=== PATIENT | female | born 1950 | race Asian ===

== ENCOUNTER → 2017-09-01 | Outpatient (CLI) | payer MEDICARE, MEDICAID ==
[~2017-09-01] MED LIST: AMLO-512 PO; ATOR40TA28 PO; FERR-89 PO; FURO40 PO; LEVO50 PO; LOSA25TA21 PO; SODI650T PO
[2017-09-01 15:22] LABS: ALBUMIN 3.5 g/dL (3.4-5.0); BILIRUBIN,TOTAL 0.3 mg/dL (0.1-1.0); CALCIUM, TOTAL 10.9 mg/dL (8.8-10.5); CREATININE 3.33 mg/dL (0.60-1.30); POTASSIUM 4.3 mmol/L (3.5-5.1); TOTAL PROTEIN, SERUM 7.9 g/dL (6.4-8.2)
== END | disposition home or self-care (01) ==
LOC: LABPV 09:59
PROVIDERS: ATTEND Internal Medicine Nephrology
DX: N18.3 Chronic kidney disease, stage 3 (moderate) (principal); E83.52 Hypercalcemia

== ENCOUNTER 2017-09-24 07:56 | Day surgery (SDC) | payer MEDICARE, MEDICAID ==
[~2017-09-24] VITALS: Ht 149.9 cm; Wt 75.9 kg
[~2017-09-24 07:56] MED LIST changes: -AMLO-512 PO; -ATOR40TA28 PO; -FERR-89 PO; -FURO40 PO; -LEVO50 PO; -LOSA25TA21 PO; -SODI650T PO; +SODIUM CHLORIDE 0.9% 1,000 ML IV ONE
[2017-09-24] MEDS ORDERED: SODIUM CHLORIDE 0.9% 1,000 ML IV ONE (08:11)
[2017-09-24] MEDS ORDERED: FERR-89 PO (08:38)
[2017-09-24] MEDS ORDERED: FURO40 PO (08:38)
[2017-09-24] MEDS ORDERED: LEVO50 PO (08:38)
[2017-09-24] MEDS ORDERED: SODI650T PO (08:38)
[2017-09-24] MEDS ORDERED: AMLO-512 PO (08:38)
[2017-09-24] MEDS ORDERED: LOSA25TA21 PO (08:38)
[2017-09-24] MEDS ORDERED: ATOR40TA28 PO (08:38)
[2017-09-24] MEDS ORDERED: FentaNYL CITRATE-PF 100 MCG/2 ML VIAL ONE (09:03)
[2017-09-24] MEDS ORDERED: MIDAZOLAM HCL 2 MG/2 ML VIAL ONE (09:03)
[2017-09-24] MEDS ORDERED: GELATIN SPONGE,ABSORBABLE 12-7 MM TP ONE (09:14)
[2017-09-24] MEDS ORDERED: MIDAZOLAM HCL 2 MG/2 ML VIAL IVP ONE (09:55)
[2017-09-24] MEDS ORDERED: FentaNYL CITRATE-PF 100 MCG/2 ML VIAL IVP ONE (09:55)
[2017-09-24 10:23] LABS: GLUCOMETER DEV NAME(LOC) SDS 5; GLUCOSE,POINT OF CARE 246 MG/DL (70-110)
== END 2017-09-24 13:40 | disposition home or self-care (01) ==
LOC: SURGERY 07:56 → EDSTATUS 09:00 → SURGERY 13:40
PROVIDERS: ATTEND Internal Medicine Nephrology
DX: I12.9 Hypertensive chronic kidney disease with stage 1 through stage 4 chronic kidney disease, or unspecified chronic kidney disease (principal); N18.9 Chronic kidney disease, unspecified; E11.22 Type 2 diabetes mellitus with diabetic chronic kidney disease; E83.52 Hypercalcemia; E78.00 Pure hypercholesterolemia, unspecified; M19.90 Unspecified osteoarthritis, unspecified site; Z98.890 Other specified postprocedural states; Z79.4 Long term (current) use of insulin; Z79.899 Other long term (current) drug therapy
CPT/HCPCS: 50200; 82962; 88300; J2250; J3010; J7030; 77012

== ENCOUNTER → 2017-10-15 | Outpatient (CLI) | payer MEDICARE, MEDICAID ==
[~2017-10-15] MED LIST changes: +AMLO-512 PO; +ATOR40TA28 PO; +FERR-89 PO; +FURO40 PO; +LEVO50 PO; +LOSA25TA21 PO; +SODI650T PO; -SODIUM CHLORIDE 0.9% 1,000 ML IV ONE
[2017-10-15 12:15] LABS: HEMATOCRIT 26.7 % (36-46); HEMOGLOBIN 8.4 g/dL (12.0-16.0)
[2017-10-15 12:23] LABS: CALCIUM, TOTAL 9.3 mg/dL (8.8-10.5); CREATININE 3.01 mg/dL (0.60-1.30); POTASSIUM 5.5 mmol/L (3.5-5.1)
== END | disposition home or self-care (01) ==
LOC: LABPV 10:50
PROVIDERS: ATTEND Internal Medicine Nephrology
DX: N18.3 Chronic kidney disease, stage 3 (moderate) (principal); E83.52 Hypercalcemia
CPT/HCPCS: 85014; 85018

== ENCOUNTER 2018-07-19 13:28 | Inpatient (IN) | payer OTHER, MEDICAID ==
[~2018-07-19] VITALS: Ht 157.5 cm; Wt 78.5 kg
[~2018-07-19 13:28] MED LIST changes: +LOSA25TA16 PO; -LOSA25TA21 PO
[2018-07-19] MEDS ORDERED: NOREPINEPHRINE 4 MG/D5%-WATER 250 ML IV ONE (13:42)
[2018-07-19] MEDS ORDERED: DOPamine HCL 400 MG/D5%-WATER 250 ML IV ONE (13:57)
[2018-07-19] MEDS ORDERED: DOPamine HCL 400 MG/D5%-WATER 250 ML IV PRN (14:00)
[2018-07-19 14:19] LABS: HEMOGLOBIN 7.7 g/dL (12.0-16.0); MEAN CORPUSCULAR HEMOGLOBIN 27.2 pg (26.0-34.0); MEAN CORPUSCULAR HGB CONC 28.6 G/dL (31.0-37.0); MEAN CORPUSCULAR VOLUME 95 fL (80-100); PLATELET COUNT (AUTO) 268 K/uL (150-450); RED BLOOD CELL COUNT(AUTO) 2.85 MIL/uL (4.00-5.20); RED CELL DISTRIBUTION WIDTH 21.8 % (11.5-14.5)
[2018-07-19 14:20] LABS: INR 1.2 (0.9-1.1)
[2018-07-19 14:34] LABS: BAND NEUTROPHILS % (MANUAL) 7 % (0-5); EOSINOPHILS % (MANUAL) 1 % (1-6); LYMPHOCYTES % (MANUAL) 11 % (22-44); MONOCYTES % (MANUAL) 2 % (2-9); SEGMENTED NEUTROPHILS % 79 % (40-70)
[2018-07-19 14:40] LABS: BILIRUBIN,TOTAL 0.3 mg/dL (0.1-1.0); CALCIUM, TOTAL 12.1 mg/dL (8.8-10.5); CREATININE 4.4 mg/dL (0.60-1.30)
[2018-07-19 14:41] LABS: ALBUMIN 2.5 g/dL (3.4-5.0); TOTAL PROTEIN, SERUM 6.2 g/dL (6.4-8.2)
[2018-07-19] MEDS ORDERED: DEXTROSE 50%-WATER 25 GM/50 ML SYRINGE IVP ONE ×2 (14:49→15:30)
[2018-07-19] MEDS ORDERED: RINGERS SOLUTION,LACTATED 1,000 ML IV ONE (14:50)
[2018-07-19] MEDS ORDERED: INSULIN REGULAR, HUMAN 100 UNITS/ML ONE (14:53)
[2018-07-19] MEDS ORDERED: CARV3 PO (15:30)
[2018-07-19] MEDS ORDERED: INSULIN REGULAR, HUMAN 100 UNITS/ML IVP ONE (15:30)
[2018-07-19] MEDS ORDERED: ATOR40TA28 PO (15:30)
[2018-07-19 15:45] LABS: LACTIC ACID 8.5 mmol/L (0.4-2.0)
[2018-07-19 15:57] LABS: ABG A-A DIFF O2 559.5 mmHg (10-20.0); ABG BASE EXCESS -11.8 mmol/L (-2.0-3.0); ABG CARBOXYHEMOGLOBIN 2.9 % (0.0-1.5); ABG HCO3 15.3 mmol/L (22.0-26.0); ABG METHEMOGLOBIN 0.2 % (0.0-1.5); ABG OXYGEN CONTENT 11.2 mL/dL (15.0-23.0); ABG OXYGEN SATURATION 95.3 % (95.0-98.0); ABG OXYHEMOGLOBIN 92.3 % (94.0-100.0); ABG PCO2 55 mmHg (35-45); ABG TOTAL HEMOGLOBIN 8.5 G/dL (12.0-18.0); PO2, ARTERIAL BG 101.1 mmHg (79.0-87.0); SOURCE, BLOOD GAS ARTERIAL; TEMPERATURE, FAHRENHEIT, BG 96.7 FAHREN (96.0-98.6)
[2018-07-19 15:58] LABS: ABG PH 7.119 (7.35-7.450); O2 DEVICE,BLOOD GAS VENTILATOR (ROOM AIR); PEEP,BG 5 cm H2O; SITE, BLOOD GAS ARTERIAL LINE; VT, ABG 500 ml
[2018-07-19] MEDS ORDERED: HEPARIN SODIUM,PORCINE 1,000 UNITS/ML VIAL IVP ONE ×4 (16:30→19:15)
[2018-07-19 16:48] LABS: APPEARANCE,URINE CLOUDY (CLEAR); BILIRUBIN,URINE NEGATIVE (NEGATIVE); GLUCOSE, URINE (UA) NEGATIVE (NEGATIVE); KETONES,URINE TRACE mg/dL (NEGATIVE); LEUKOCYTE ESTERASE ,URINE LARGE (NEGATIVE); NITRATE,URINE POSITIVE (NEGATIVE); OCCULT BLOOD,URINE LARGE (NEGATIVE); PH,URINE 7.5 (5.0-8.0); PROTEIN,URINE SEE CONFIRM (NEGATIVE)
[2018-07-19 16:50] VITALS: BP 154/61
[2018-07-19] MEDS ORDERED: SODIUM BICARBONATE [ADULT] 8.4% 50 MEQ/50 ML SYRINGE IVP ONE ×2 (16:57→17:45)
[2018-07-19 17:01] LABS: RBC,URINE 51-100 /HPF (0-2); SULFOSALICYLIC ACID,URINE 4+ (Negative); WBC,URINE 51-100 /HPF (0-5)
[2018-07-19 17:03] LABS: BACTERIA,URINE Moderate /HPF (None Seen); SQUAMOUS EPITHELIAL CELL,UR Few /LPF (None Seen)
[2018-07-19] MEDS ORDERED: SODIUM CHLORIDE 0.9% 2,000 ML IV ONE (18:03)
[2018-07-19] MEDS: PANTOPRAZOLE SODIUM 40 MG/VIAL IVP SCH (18:07)
[2018-07-19 18:25] LABS: CREATININE 4.24 mg/dL (0.60-1.30); MAGNESIUM 2.5 mg/dL (1.80-2.40); PHOSPHORUS 7.9 mg/dL (2.5-4.9); POTASSIUM 5.4 mmol/L (3.5-5.1)
[2018-07-19 18:26] LABS: ABG A-A DIFF O2 602.2 mmHg (10-20.0); ABG BASE EXCESS -5.2 mmol/L (-2.0-3.0); ABG CARBOXYHEMOGLOBIN 2.3 % (0.0-1.5); ABG HCO3 20.4 mmol/L (22.0-26.0); ABG METHEMOGLOBIN 0.1 % (0.0-1.5); ABG OXYGEN CONTENT 10.3 mL/dL (15.0-23.0); ABG OXYHEMOGLOBIN 92.7 % (94.0-100.0); ABG PCO2 37 mmHg (35-45); ABG PH 7.355 (7.35-7.450); PO2, ARTERIAL BG 77.9 mmHg (79.0-87.0); SOURCE, BLOOD GAS ARTERIAL; TEMPERATURE, FAHRENHEIT, BG 95.4 FAHREN (96.0-98.6)
[2018-07-19 18:33] LABS: ABG TOTAL HEMOGLOBIN 7.8 G/dL (12.0-18.0); SITE, BLOOD GAS A LINE
[2018-07-19 18:34] LABS: O2 DEVICE,BLOOD GAS VENTILATOR (ROOM AIR)
[2018-07-19 18:35] LABS: PEEP,BG 5 cm H2O; VT, ABG 500 ml
[2018-07-19] MEDS ORDERED: MANNITOL 25%-12.5 GM/50 ML VIAL IVP PRN (19:15)
[2018-07-19 20:00] VITALS: BP 103/46
[2018-07-19] MEDS ORDERED: ONDANSETRON HCL 4 MG/2 ML VIAL IVP PRN (20:45)
[2018-07-19] MEDS ORDERED: ALBUTEROL SULFATE 2.5 MG/0.5 ML NEB SOLUTION NEB PRN (20:45)
[2018-07-19] MEDS ORDERED: IPRATROPIUM BROMIDE 0.5 MG/2.5 ML NEB SOLUTION NEB PRN (20:45)
[2018-07-19] MEDS ORDERED: MAGNESIUM HYDROXIDE SUSPENSION 30 ML UDCUP PO PRN (20:45)
[2018-07-19] MEDS ORDERED: BISACODYL 10 MG RECTAL RECTAL SUPPOSITORY PR PRN (20:45)
[2018-07-19 21:01] LABS: ABG A-A DIFF O2 610.6 mmHg (10-20.0); ABG BASE EXCESS -0.3 mmol/L (-2.0-3.0); ABG CARBOXYHEMOGLOBIN 2.3 % (0.0-1.5); ABG HCO3 24.3 mmol/L (22.0-26.0); ABG METHEMOGLOBIN 0.1 % (0.0-1.5); ABG OXYGEN CONTENT 10.9 mL/dL (15.0-23.0); ABG OXYHEMOGLOBIN 94.7 % (94.0-100.0); ABG PCO2 29 mmHg (35-45); PO2, ARTERIAL BG 82.6 mmHg (79.0-87.0); SOURCE, BLOOD GAS ARTERIAL; TEMPERATURE, FAHRENHEIT, BG 91.4 FAHREN (96.0-98.6)
[2018-07-19 21:04] LABS: O2 DEVICE,BLOOD GAS VENTILATOR (ROOM AIR); PEEP,BG 5 cm H2O; SITE, BLOOD GAS ARTERIAL LINE; VT, ABG 500 ml
[2018-07-19] MEDS: DOCUSATE SODIUM 100 MG CAPSULE NG SCH (21:42)
[2018-07-19] MEDS: PIPERACILLIN SODIUM/TAZOBACTAM 2.25 GM in DEXTROSE 5%-WATER 50 ML IV SCH (21:42)
[2018-07-19] MEDS ORDERED: SODIUM CHLORIDE 0.9% 250 ML IV ONE (21:48)
[2018-07-20] VITALS (14 sets, daily range): BP systolic 104–159; BP diastolic 40–58
[2018-07-20] MEDS: HEPARIN SODIUM,PORCINE 5,000 UNITS/ML VIAL SQ SCH ×3 (00:22→16:48)
[2018-07-20 01:05] LABS: ALBUMIN 2.3 g/dL (3.4-5.0); BILIRUBIN,TOTAL 0.6 mg/dL (0.1-1.0); CALCIUM, TOTAL 8.3 mg/dL (8.8-10.5); CREATININE 3.16 mg/dL (0.60-1.30); PHOSPHORUS 5.5 mg/dL (2.5-4.9); POTASSIUM 4.1 mmol/L (3.5-5.1); TOTAL PROTEIN, SERUM 5.5 g/dL (6.4-8.2)
[2018-07-20 01:28] LABS: GLUCOSE,POINT OF CARE 204 MG/DL (70-110)
[2018-07-20] MEDS: PIPERACILLIN SODIUM/TAZOBACTAM 2.25 GM in DEXTROSE 5%-WATER 50 ML IV SCH ×3 (02:28→18:00)
[2018-07-20 04:16] LABS: ABG A-A DIFF O2 472.5 mmHg (10-20.0); ABG BASE EXCESS -6.4 mmol/L (-2.0-3.0); ABG HCO3 19.6 mmol/L (22.0-26.0); ABG METHEMOGLOBIN 0.1 % (0.0-1.5); ABG OXYGEN CONTENT 9.4 mL/dL (15.0-23.0); ABG OXYGEN SATURATION 96.6 % (95.0-98.0); ABG OXYHEMOGLOBIN 93.6 % (94.0-100.0); ABG PCO2 26 mmHg (35-45); ABG PH 7.449 (7.35-7.450); PO2, ARTERIAL BG 78.2 mmHg (79.0-87.0); SOURCE, BLOOD GAS ARTERIAL
[2018-07-20 04:24] LABS: O2 DEVICE,BLOOD GAS VENTILATOR (ROOM AIR); SITE, BLOOD GAS ARTERIAL LINE
[2018-07-20 04:25] LABS: PEEP,BG 5 cm H2O; VT, ABG 500 ml
[2018-07-20 06:43] LABS: GLUCOSE,POINT OF CARE 260 MG/DL (70-110)
[2018-07-20 06:54] LABS: BASOPHILS % (AUTO) 0.1 % (0.0-2.0); EOSINOPHILS % (AUTO) 0 % (1.0-6.0); HEMATOCRIT 22.2 % (36-46); LYMPHOCYTES # (AUTO) 0.3 K/uL (1.0-4.8); LYMPHOCYTES % (AUTO) 1.1 % (22.0-44.0); MEAN CORPUSCULAR HGB CONC 30.5 G/dL (31.0-37.0); MEAN CORPUSCULAR VOLUME 88 fL (80-100); MONOCYTES # (AUTO) 1.1 K/uL (0.1-1.0); MONOCYTES % (AUTO) 4.1 % (2.0-9.0); NEUTROPHILS # (AUTO) 24.9 K/uL (1.8-7.7); PLATELET COUNT (AUTO) 205 K/uL (150-450); RED BLOOD CELL COUNT(AUTO) 2.51 MIL/uL (4.00-5.20); RED CELL DISTRIBUTION WIDTH 20.7 % (11.5-14.5)
[2018-07-20 07:07] LABS: HEMOGLOBIN 6.8 g/dL (12.0-16.0); NEUTROPHILS % (AUTO) 94.7 % (40.0-70.0)
[2018-07-20 07:16] LABS: % IRON SATURATION 5.6 % (22-44)
[2018-07-20 07:24] LABS: ALBUMIN 2.2 g/dL (3.4-5.0); BILIRUBIN,TOTAL 0.6 mg/dL (0.1-1.0); CALCIUM, TOTAL 8.1 mg/dL (8.8-10.5); CREATININE 3.43 mg/dL (0.60-1.30); MAGNESIUM 2.1 mg/dL (1.80-2.40); PHOSPHORUS 6.2 mg/dL (2.5-4.9); POTASSIUM 4.3 mmol/L (3.5-5.1); THYROID STIMULATING HORMONE 1.42 uIU/mL (0.36-3.74); TOTAL PROTEIN, SERUM 5.4 g/dL (6.4-8.2)
[2018-07-20] MEDS ORDERED: PANTOPRAZOLE SODIUM 40 MG/VIAL IVP SCH (09:00)
[2018-07-20 09:19] LABS: ABG A-A DIFF O2 327.4 mmHg (10-20.0); ABG BASE EXCESS -8.9 mmol/L (-2.0-3.0); ABG CARBOXYHEMOGLOBIN 2.7 % (0.0-1.5); ABG HCO3 17.8 mmol/L (22.0-26.0); ABG METHEMOGLOBIN 0.1 % (0.0-1.5); ABG OXYGEN CONTENT 10.5 mL/dL (15.0-23.0); ABG OXYGEN SATURATION 98.3 % (95.0-98.0); ABG OXYHEMOGLOBIN 95.5 % (94.0-100.0); ABG PCO2 29 mmHg (35-45); ABG PH 7.367 (7.35-7.450); PO2, ARTERIAL BG 140.3 mmHg (79.0-87.0); SOURCE, BLOOD GAS ARTERIAL; TEMPERATURE, FAHRENHEIT, BG 98.6 FAHREN (96.0-98.6)
[2018-07-20 09:21] LABS: ABG TOTAL HEMOGLOBIN 7.6 G/dL (12.0-18.0); O2 DEVICE,BLOOD GAS VENTILATOR (ROOM AIR); PEEP,BG 5 cm H2O; SITE, BLOOD GAS ARTERIAL LINE; VT, ABG 500 ml
[2018-07-20] MEDS: EPOETIN ALFA 10,000 UNITS/ML VIAL SQ SCH (09:22)
[2018-07-20] MEDS: DOCUSATE SODIUM 100 MG CAPSULE NG SCH ×2 (09:22→21:06)
[2018-07-20] MEDS: PANTOPRAZOLE SODIUM 40 MG/VIAL IVP SCH (09:22)
[2018-07-20] MEDS: SOD FERRIC GLUC COMPLX/SUCROSE 125 MG in SODIUM CHLORIDE 0.9% 100 ML IV SCH (09:23)
[2018-07-20] MEDS ORDERED: SODIUM CHLORIDE 0.9% 500 ML IV ONE (10:20)
[2018-07-20] MEDS ORDERED: SODIUM CHLORIDE 0.9% 250 ML IV ONE ×2 (11:28→13:57)
[2018-07-20] MEDS ORDERED: SODIUM CHLORIDE 0.9% 2,000 ML IV ONE (11:28)
[2018-07-20 12:51] LABS: ALBUMIN 2.2 g/dL (3.4-5.0); BILIRUBIN,TOTAL 0.6 mg/dL (0.1-1.0); CALCIUM, TOTAL 8.1 mg/dL (8.8-10.5); CREATININE 3.5 mg/dL (0.60-1.30); MAGNESIUM 2.2 mg/dL (1.80-2.40); PHOSPHORUS 6.7 mg/dL (2.5-4.9); POTASSIUM 4.4 mmol/L (3.5-5.1); TOTAL PROTEIN, SERUM 5.4 g/dL (6.4-8.2)
[2018-07-20] MEDS: PROPOFOL 1000 MG/ISO-OSM 100 ML IV PRN ×2 (15:11→22:39)
[2018-07-20 15:51] LABS: ABG A-A DIFF O2 257.8 mmHg (10-20.0); ABG BASE EXCESS -7.5 mmol/L (-2.0-3.0); ABG CARBOXYHEMOGLOBIN 1.7 % (0.0-1.5); ABG HCO3 19.3 mmol/L (22.0-26.0); ABG METHEMOGLOBIN 0.2 % (0.0-1.5); ABG OXYGEN SATURATION 98.3 % (95.0-98.0); ABG OXYHEMOGLOBIN 96.4 % (94.0-100.0); ABG PCO2 28 mmHg (35-45); ABG PH 7.412 (7.35-7.450); ABG TOTAL HEMOGLOBIN 10.9 G/dL (12.0-18.0); PO2, ARTERIAL BG 139.8 mmHg (79.0-87.0); SITE, BLOOD GAS ARTERIAL LINE; SOURCE, BLOOD GAS ARTERIAL; TEMPERATURE, FAHRENHEIT, BG 98.6 FAHREN (96.0-98.6)
[2018-07-20 15:52] LABS: O2 DEVICE,BLOOD GAS VENTILATOR (ROOM AIR); PEEP,BG 5 cm H2O; SPONTANEOUS VT, BG 448 ml; VENT MODE, BG Press. Control Vent (ROOM AIR)
[2018-07-20] MEDS ORDERED: HEPARIN SODIUM,PORCINE 1,000 UNITS/ML VIAL IVP PRN (16:15)
[2018-07-20] MEDS ORDERED: DEXTROSE 50%-WATER 25 GM/50 ML SYRINGE IVP PRN (16:15)
[2018-07-20] MEDS ORDERED: HEPARIN SODIUM,PORCINE 1,000 UNITS/ML VIAL IVP ONE (16:47)
[2018-07-20] MEDS ORDERED: SODIUM BICARBONATE [ADULT] 8.4% 50 MEQ/50 ML SYRINGE IVP ONE (16:48)
[2018-07-20] MEDS ORDERED: ATROPINE SULFATE 0.1 MG/ML 10 ML SYRINGE IVP ONE (16:48)
[2018-07-20] MEDS ORDERED: EPINEPHrine 1:10,000 [1 MG/10 ML] SYRINGE IVP ONE (16:48)
[2018-07-20] MEDS ORDERED: CALCIUM CHLORIDE 100 MG/ML 10 ML SYRINGE IVP ONE (16:48)
[2018-07-20] MEDS: HEPARIN SODIUM,PORCINE 1,000 UNITS/ML VIAL IVP PRN ×2 (16:50→16:52)
[2018-07-20] MEDS: MORPHINE SULFATE 4 MG/ML SYRINGE IVP PRN (18:00)
[2018-07-20] MEDS: INSULIN LISPRO 100 UNITS/ML SQ PRN (18:31)
[2018-07-20 18:39] LABS: ALBUMIN 2.4 g/dL (3.4-5.0); BILIRUBIN,TOTAL 0.8 mg/dL (0.1-1.0); CALCIUM, TOTAL 8.7 mg/dL (8.8-10.5); CREATININE 2.31 mg/dL (0.60-1.30); MAGNESIUM 1.7 mg/dL (1.80-2.40); PHOSPHORUS 4.9 mg/dL (2.5-4.9); POTASSIUM 4.3 mmol/L (3.5-5.1)
[2018-07-20] MEDS: INSULIN GLARGINE,HUM.REC.ANLOG 100 UNITS/ML SQ SCH (21:07)
[2018-07-20 21:31] LABS: ABG A-A DIFF O2 306.3 mmHg (10-20.0); ABG BASE EXCESS -4.6 mmol/L (-2.0-3.0); ABG CARBOXYHEMOGLOBIN 2.4 % (0.0-1.5); ABG HCO3 21.1 mmol/L (22.0-26.0); ABG METHEMOGLOBIN 0.2 % (0.0-1.5); ABG OXYGEN CONTENT 11.6 mL/dL (15.0-23.0); ABG OXYGEN SATURATION 96.5 % (95.0-98.0); ABG PCO2 31 mmHg (35-45); ABG PH 7.426 (7.35-7.450); ABG TOTAL HEMOGLOBIN 8.7 G/dL (12.0-18.0); PO2, ARTERIAL BG 87.7 mmHg (79.0-87.0); SOURCE, BLOOD GAS ARTERIAL; TEMPERATURE, FAHRENHEIT, BG 98.6 FAHREN (96.0-98.6)
[2018-07-20 21:37] LABS: O2 DEVICE,BLOOD GAS VENTILATOR (ROOM AIR); SITE, BLOOD GAS ARTERIAL LINE; VENT MODE, BG Press. Control Vent (ROOM AIR)
[2018-07-20 21:38] LABS: PEEP,BG 5 cm H2O
[2018-07-21] VITALS: BP 114/44
[2018-07-21] MEDS: HEPARIN SODIUM,PORCINE 5,000 UNITS/ML VIAL SQ SCH ×3 (00:05→16:14)
[2018-07-21] MEDS: INSULIN LISPRO 100 UNITS/ML SQ PRN ×4 (00:09→21:24)
[2018-07-21 01:11] LABS: ALBUMIN 2.3 g/dL (3.4-5.0); BILIRUBIN,TOTAL 0.7 mg/dL (0.1-1.0); CALCIUM, TOTAL 8.5 mg/dL (8.8-10.5); CREATININE 2.76 mg/dL (0.60-1.30); MAGNESIUM 1.7 mg/dL (1.80-2.40); PHOSPHORUS 5.5 mg/dL (2.5-4.9); POTASSIUM 4.1 mmol/L (3.5-5.1); TOTAL PROTEIN, SERUM 5.7 g/dL (6.4-8.2)
[2018-07-21] MEDS: PIPERACILLIN SODIUM/TAZOBACTAM 2.25 GM in DEXTROSE 5%-WATER 50 ML IV SCH ×3 (03:48→18:35)
[2018-07-21 03:52] LABS: ABG BASE EXCESS -4.5 mmol/L (-2.0-3.0); ABG CARBOXYHEMOGLOBIN 1.5 % (0.0-1.5); ABG HCO3 21.4 mmol/L (22.0-26.0); ABG METHEMOGLOBIN 0.2 % (0.0-1.5); ABG OXYGEN CONTENT 12.1 mL/dL (15.0-23.0); ABG OXYGEN SATURATION 97.9 % (95.0-98.0); ABG OXYHEMOGLOBIN 96.2 % (94.0-100.0); ABG PCO2 27 mmHg (35-45); ABG PH 7.468 (7.35-7.450); ABG TOTAL HEMOGLOBIN 8.8 G/dL (12.0-18.0); PO2, ARTERIAL BG 117.8 mmHg (79.0-87.0); SOURCE, BLOOD GAS ARTERIAL; TEMPERATURE, FAHRENHEIT, BG 97.5 FAHREN (96.0-98.6)
[2018-07-21 04:00] VITALS: BP 133/36
[2018-07-21 04:01] LABS: O2 DEVICE,BLOOD GAS VENTILATOR (ROOM AIR); PEEP,BG 5 cm H2O; SITE, BLOOD GAS ARTERIAL LINE; VENT MODE, BG Press. Control Vent (ROOM AIR)
[2018-07-21 04:55] LABS: BASOPHILS % (AUTO) 0.1 % (0.0-2.0); EOSINOPHILS % (AUTO) 0.1 % (1.0-6.0); HEMATOCRIT 26.3 % (36-46); HEMOGLOBIN 8.8 g/dL (12.0-16.0); LYMPHOCYTES # (AUTO) 0.4 K/uL (1.0-4.8); LYMPHOCYTES % (AUTO) 1.7 % (22.0-44.0); MEAN CORPUSCULAR HEMOGLOBIN 28.8 pg (26.0-34.0); MEAN CORPUSCULAR HGB CONC 33.3 G/dL (31.0-37.0); MEAN CORPUSCULAR VOLUME 87 fL (80-100); MONOCYTES # (AUTO) 0.8 K/uL (0.1-1.0); MONOCYTES % (AUTO) 3.3 % (2.0-9.0); NEUTROPHILS # (AUTO) 23.9 K/uL (1.8-7.7); PLATELET COUNT (AUTO) 207 K/uL (150-450); RED BLOOD CELL COUNT(AUTO) 3.05 MIL/uL (4.00-5.20); RED CELL DISTRIBUTION WIDTH 19.2 % (11.5-14.5)
[2018-07-21 04:59] LABS: NEUTROPHILS % (AUTO) 94.8 % (40.0-70.0)
[2018-07-21] MEDS ORDERED: SODIUM CHLORIDE 0.9% 250 ML IV ONE ×2 (05:02→21:01)
[2018-07-21 05:15] LABS: ALBUMIN 2.3 g/dL (3.4-5.0); BILIRUBIN,TOTAL 0.6 mg/dL (0.1-1.0); CALCIUM, TOTAL 8.3 mg/dL (8.8-10.5); CREATININE 2.99 mg/dL (0.60-1.30); MAGNESIUM 1.7 mg/dL (1.80-2.40); PHOSPHORUS 5.8 mg/dL (2.5-4.9); POTASSIUM 4.2 mmol/L (3.5-5.1); TOTAL PROTEIN, SERUM 5.9 g/dL (6.4-8.2)
[2018-07-21 07:08] LABS: GLUCOSE,POINT OF CARE 182 MG/DL (70-110)
[2018-07-21 07:08] LABS: GLUCOSE,POINT OF CARE 173 MG/DL (70-110)
[2018-07-21 07:08] LABS: GLUCOSE,POINT OF CARE 171 MG/DL (70-110)
[2018-07-21 07:08] LABS: GLUCOSE,POINT OF CARE 188 MG/DL (70-110)
[2018-07-21 08:00] VITALS: BP 119/39
[2018-07-21] MEDS: PANTOPRAZOLE SODIUM 40 MG/VIAL IVP SCH (08:54)
[2018-07-21] MEDS: SOD FERRIC GLUC COMPLX/SUCROSE 125 MG in SODIUM CHLORIDE 0.9% 100 ML IV SCH (08:54)
[2018-07-21] MEDS: DOCUSATE SODIUM 100 MG CAPSULE NG SCH ×2 (08:54→21:22)
[2018-07-21] MEDS: PROPOFOL 1000 MG/ISO-OSM 100 ML IV PRN (08:59)
[2018-07-21 09:25] LABS: ABG A-A DIFF O2 253.9 mmHg (10-20.0); ABG BASE EXCESS -1.1 mmol/L (-2.0-3.0); ABG CARBOXYHEMOGLOBIN 1.9 % (0.0-1.5); ABG HCO3 24.1 mmol/L (22.0-26.0); ABG METHEMOGLOBIN 0.2 % (0.0-1.5); ABG OXYGEN CONTENT 14.3 mL/dL (15.0-23.0); ABG OXYGEN SATURATION 97.2 % (95.0-98.0); ABG OXYHEMOGLOBIN 95.2 % (94.0-100.0); ABG PCO2 31 mmHg (35-45); ABG PH 7.477 (7.35-7.450); ABG TOTAL HEMOGLOBIN 10.6 G/dL (12.0-18.0); PO2, ARTERIAL BG 102.8 mmHg (79.0-87.0); SOURCE, BLOOD GAS ARTERIAL; TEMPERATURE, FAHRENHEIT, BG 99.8 FAHREN (96.0-98.6)
[2018-07-21 09:31] LABS: O2 DEVICE,BLOOD GAS VENTILATOR (ROOM AIR); SITE, BLOOD GAS ARTERIAL LINE; VENT MODE, BG Press. Control Vent (ROOM AIR); VT, ABG 350 ml
[2018-07-21 09:32] LABS: PEEP,BG 5 cm H2O
[2018-07-21 09:33] LABS: INSPIRATORY TIME, BG 0.8 SEC
[2018-07-21 12:00] VITALS: BP 125/44
[2018-07-21 12:37] LABS: ALBUMIN 2.2 g/dL (3.4-5.0); BILIRUBIN,TOTAL 0.6 mg/dL (0.1-1.0); CALCIUM, TOTAL 8.3 mg/dL (8.8-10.5); CREATININE 3.43 mg/dL (0.60-1.30); MAGNESIUM 1.8 mg/dL (1.80-2.40); PHOSPHORUS 5.9 mg/dL (2.5-4.9); POTASSIUM 4.5 mmol/L (3.5-5.1); TOTAL PROTEIN, SERUM 5.8 g/dL (6.4-8.2)
[2018-07-21 16:00] VITALS: BP 138/59
[2018-07-21 18:08] LABS: GLUCOSE,POINT OF CARE 167 MG/DL (70-110)
[2018-07-21 18:24] LABS: ALBUMIN 2.2 g/dL (3.4-5.0); BILIRUBIN,TOTAL 0.6 mg/dL (0.1-1.0); CALCIUM, TOTAL 8.2 mg/dL (8.8-10.5); CREATININE 3.78 mg/dL (0.60-1.30); MAGNESIUM 1.9 mg/dL (1.80-2.40); PHOSPHORUS 6.1 mg/dL (2.5-4.9); POTASSIUM 4.7 mmol/L (3.5-5.1); TOTAL PROTEIN, SERUM 5.8 g/dL (6.4-8.2)
[2018-07-21 20:00] VITALS: BP 122/47
[2018-07-21] MEDS ORDERED: SODIUM CHLORIDE 0.9% 500 ML IV ONE (21:01)
[2018-07-21] MEDS: INSULIN GLARGINE,HUM.REC.ANLOG 100 UNITS/ML SQ SCH (21:23)
[2018-07-22] VITALS: BP 111/43
[2018-07-22] MEDS: HEPARIN SODIUM,PORCINE 5,000 UNITS/ML VIAL SQ SCH ×3 (00:03→16:00)
[2018-07-22] MEDS: INSULIN LISPRO 100 UNITS/ML SQ PRN ×3 (00:04→13:10)
[2018-07-22] MEDS: PIPERACILLIN SODIUM/TAZOBACTAM 2.25 GM in DEXTROSE 5%-WATER 50 ML IV SCH ×3 (03:09→17:22)
[2018-07-22 04:00] VITALS: BP 112/44
[2018-07-22 04:58] LABS: EOSINOPHILS % (AUTO) 0.3 % (1.0-6.0); HEMATOCRIT 23.3 % (36-46); HEMOGLOBIN 7.7 g/dL (12.0-16.0); LYMPHOCYTES # (AUTO) 0.7 K/uL (1.0-4.8); LYMPHOCYTES % (AUTO) 3.8 % (22.0-44.0); MEAN CORPUSCULAR HEMOGLOBIN 28.8 pg (26.0-34.0); MEAN CORPUSCULAR HGB CONC 32.9 G/dL (31.0-37.0); MEAN CORPUSCULAR VOLUME 88 fL (80-100); MONOCYTES # (AUTO) 0.8 K/uL (0.1-1.0); NEUTROPHILS # (AUTO) 17.6 K/uL (1.8-7.7); PLATELET COUNT (AUTO) 173 K/uL (150-450); RED BLOOD CELL COUNT(AUTO) 2.66 MIL/uL (4.00-5.20); RED CELL DISTRIBUTION WIDTH 19.9 % (11.5-14.5)
[2018-07-22 05:00] LABS: NEUTROPHILS % (AUTO) 91.9 % (40.0-70.0)
[2018-07-22 05:08] LABS: CREATININE 4.37 mg/dL (0.60-1.30); PHOSPHORUS 6.8 mg/dL (2.5-4.9); POTASSIUM 4.3 mmol/L (3.5-5.1)
[2018-07-22] MEDS: PROPOFOL 1000 MG/ISO-OSM 100 ML IV PRN ×2 (05:21→22:58)
[2018-07-22] MEDS: DOCUSATE SODIUM 100 MG CAPSULE NG SCH ×2 (08:16→21:56)
[2018-07-22] MEDS: SOD FERRIC GLUC COMPLX/SUCROSE 125 MG in SODIUM CHLORIDE 0.9% 100 ML IV SCH (08:23)
[2018-07-22] MEDS: EPOETIN ALFA 10,000 UNITS/ML VIAL SQ SCH (08:24)
[2018-07-22] MEDS: PANTOPRAZOLE SODIUM 40 MG/VIAL IVP SCH (08:24)
[2018-07-22 09:38] VITALS: BP 126/48
[2018-07-22] MEDS ORDERED: NOREPINEPHRINE BITARTRATE 16 MG in DEXTROSE 5%-WATER 234 ML IV PRN (10:24)
[2018-07-22 12:00] VITALS: BP 134/51
[2018-07-22 16:00] VITALS: BP 150/55
[2018-07-22] MEDS ORDERED: SODIUM CHLORIDE 0.9% 250 ML IV ONE (17:07)
[2018-07-22 17:08] LABS: GLUCOSE,POINT OF CARE 184 MG/DL (70-110)
[2018-07-22 17:08] LABS: GLUCOSE,POINT OF CARE 165 MG/DL (70-110)
[2018-07-22 17:08] LABS: GLUCOSE,POINT OF CARE 186 MG/DL (70-110)
[2018-07-22 17:08] LABS: GLUCOSE,POINT OF CARE 147 MG/DL (70-110)
[2018-07-22] MEDS ORDERED: HEPARIN SODIUM,PORCINE 1,000 UNITS/ML VIAL IVP ONE (18:39)
[2018-07-22 19:42] LABS: GLUCOSE,POINT OF CARE 97 MG/DL (70-110)
[2018-07-22 20:00] VITALS: BP 119/51
[2018-07-22] MEDS: INSULIN GLARGINE,HUM.REC.ANLOG 100 UNITS/ML SQ SCH (21:57)
[2018-07-23] VITALS (7 sets, daily range): BP systolic 123–167; BP diastolic 49–89
[2018-07-23] MEDS: HEPARIN SODIUM,PORCINE 5,000 UNITS/ML VIAL SQ SCH ×4 (00:08→23:57)
[2018-07-23] MEDS ORDERED: SODIUM CHLORIDE 0.9% 250 ML IV ONE (03:18)
[2018-07-23] MEDS: PIPERACILLIN SODIUM/TAZOBACTAM 2.25 GM in DEXTROSE 5%-WATER 50 ML IV SCH ×3 (03:19→18:19)
[2018-07-23 05:18] LABS: GLUCOSE,POINT OF CARE 108 MG/DL (70-110)
[2018-07-23 05:18] LABS: GLUCOSE,POINT OF CARE 112 MG/DL (70-110)
[2018-07-23] MEDS: PROPOFOL 1000 MG/ISO-OSM 100 ML IV PRN (05:29)
[2018-07-23 05:35] LABS: BASOPHILS % (AUTO) 0.1 % (0.0-2.0); EOSINOPHILS % (AUTO) 0.7 % (1.0-6.0); HEMATOCRIT 27.3 % (36-46); HEMOGLOBIN 8.9 g/dL (12.0-16.0); LYMPHOCYTES # (AUTO) 0.6 K/uL (1.0-4.8); LYMPHOCYTES % (AUTO) 3.3 % (22.0-44.0); MEAN CORPUSCULAR HEMOGLOBIN 28.8 pg (26.0-34.0); MEAN CORPUSCULAR HGB CONC 32.7 G/dL (31.0-37.0); MEAN CORPUSCULAR VOLUME 88 fL (80-100); MONOCYTES # (AUTO) 0.9 K/uL (0.1-1.0); MONOCYTES % (AUTO) 4.7 % (2.0-9.0); NEUTROPHILS # (AUTO) 16.6 K/uL (1.8-7.7); PLATELET COUNT (AUTO) 162 K/uL (150-450); RED BLOOD CELL COUNT(AUTO) 3.11 MIL/uL (4.00-5.20); RED CELL DISTRIBUTION WIDTH 20.2 % (11.5-14.5)
[2018-07-23 05:37] LABS: NEUTROPHILS % (AUTO) 91.2 % (40.0-70.0)
[2018-07-23 05:51] LABS: CALCIUM, TOTAL 8.5 mg/dL (8.8-10.5); CREATININE 2.85 mg/dL (0.60-1.30); MAGNESIUM 1.7 mg/dL (1.80-2.40); PHOSPHORUS 5.8 mg/dL (2.5-4.9); POTASSIUM 4.2 mmol/L (3.5-5.1)
[2018-07-23 06:53] LABS: GLUCOSE,POINT OF CARE 109 MG/DL (70-110)
[2018-07-23 08:36] LABS: ABG A-A DIFF O2 154.3 mmHg (10-20.0); ABG CARBOXYHEMOGLOBIN 2.2 % (0.0-1.5); ABG HCO3 23.8 mmol/L (22.0-26.0); ABG METHEMOGLOBIN 0.3 % (0.0-1.5); ABG OXYGEN SATURATION 98.5 % (95.0-98.0); ABG PCO2 38 mmHg (35-45); ABG PH 7.414 (7.35-7.450); ABG TOTAL HEMOGLOBIN 9.4 G/dL (12.0-18.0); O2 DEVICE,BLOOD GAS VENTILATOR (ROOM AIR); SITE, BLOOD GAS ARTERIAL LINE; SOURCE, BLOOD GAS ARTERIAL; TEMPERATURE, FAHRENHEIT, BG 96.5 FAHREN (96.0-98.6)
[2018-07-23 08:37] LABS: PEEP,BG 5 cm H2O; VENT MODE, BG Press. Control Vent (ROOM AIR)
[2018-07-23] MEDS: PANTOPRAZOLE SODIUM 40 MG/VIAL IVP SCH (09:29)
[2018-07-23] MEDS: DOCUSATE SODIUM 100 MG CAPSULE NG SCH ×2 (09:29→20:31)
[2018-07-23] MEDS: SOD FERRIC GLUC COMPLX/SUCROSE 125 MG in SODIUM CHLORIDE 0.9% 100 ML IV SCH (09:30)
[2018-07-23] MEDS: METOPROLOL TARTRATE 25 MG TABLET PO SCH ×2 (09:30→20:31)
[2018-07-23 16:48] LABS: GLUCOSE,POINT OF CARE 129 MG/DL (70-110)
[2018-07-23] MEDS: INSULIN GLARGINE,HUM.REC.ANLOG 100 UNITS/ML SQ SCH (20:32)
[2018-07-23] MEDS: INSULIN LISPRO 100 UNITS/ML SQ PRN (20:33)
[2018-07-23 20:43] LABS: GLUCOSE,POINT OF CARE 150 MG/DL (70-110)
[2018-07-23 20:43] LABS: GLUCOSE,POINT OF CARE 136 MG/DL (70-110)
[2018-07-24] VITALS: BP 139/62
[2018-07-24] MEDS: INSULIN LISPRO 100 UNITS/ML SQ PRN ×4 (00:01→23:17)
[2018-07-24] MEDS: PIPERACILLIN SODIUM/TAZOBACTAM 2.25 GM in DEXTROSE 5%-WATER 50 ML IV SCH ×3 (02:32→17:55)
[2018-07-24] MEDS ORDERED: SODIUM CHLORIDE 0.9% 250 ML IV ONE (02:34)
[2018-07-24 04:00] VITALS: BP 145/63
[2018-07-24 05:08] LABS: BASOPHILS % (AUTO) 0.1 % (0.0-2.0); EOSINOPHILS % (AUTO) 0.2 % (1.0-6.0); HEMATOCRIT 28.9 % (36-46); HEMOGLOBIN 9.3 g/dL (12.0-16.0); LYMPHOCYTES # (AUTO) 0.3 K/uL (1.0-4.8); LYMPHOCYTES % (AUTO) 1.6 % (22.0-44.0); MEAN CORPUSCULAR HEMOGLOBIN 28.2 pg (26.0-34.0); MEAN CORPUSCULAR HGB CONC 32.4 G/dL (31.0-37.0); MEAN CORPUSCULAR VOLUME 87 fL (80-100); MONOCYTES # (AUTO) 0.9 K/uL (0.1-1.0); MONOCYTES % (AUTO) 4.7 % (2.0-9.0); NEUTROPHILS # (AUTO) 17.8 K/uL (1.8-7.7); PLATELET COUNT (AUTO) 175 K/uL (150-450); RED BLOOD CELL COUNT(AUTO) 3.31 MIL/uL (4.00-5.20); RED CELL DISTRIBUTION WIDTH 20.2 % (11.5-14.5)
[2018-07-24 05:11] LABS: CALCIUM, TOTAL 8.3 mg/dL (8.8-10.5); CREATININE 4.27 mg/dL (0.60-1.30); MAGNESIUM 2.1 mg/dL (1.80-2.40); NEUTROPHILS % (AUTO) 93.4 % (40.0-70.0); PHOSPHORUS 7.9 mg/dL (2.5-4.9); POTASSIUM 4.3 mmol/L (3.5-5.1)
[2018-07-24 06:03] LABS: GLUCOSE,POINT OF CARE 128 MG/DL (70-110)
[2018-07-24 06:03] LABS: GLUCOSE,POINT OF CARE 128 MG/DL (70-110)
[2018-07-24 08:00] VITALS: BP 142/56
[2018-07-24] MEDS: HEPARIN SODIUM,PORCINE 5,000 UNITS/ML VIAL SQ SCH ×3 (08:00→23:12)
[2018-07-24] MEDS: DOCUSATE SODIUM 100 MG CAPSULE NG SCH ×2 (08:27→09:00)
[2018-07-24] MEDS: PANTOPRAZOLE SODIUM 40 MG/VIAL IVP SCH (08:27)
[2018-07-24] MEDS: METOPROLOL TARTRATE 25 MG TABLET PO SCH ×2 (09:00→20:12)
[2018-07-24] MEDS: SOD FERRIC GLUC COMPLX/SUCROSE 125 MG in SODIUM CHLORIDE 0.9% 100 ML IV SCH (09:00)
[2018-07-24 11:48] LABS: GLUCOSE,POINT OF CARE 144 MG/DL (70-110)
[2018-07-24 12:00] VITALS: BP 153/66
[2018-07-24 16:00] VITALS: BP 138/75
[2018-07-24] MEDS ORDERED: CARBOXYMETHYLCELLULOSE SODIUM 0.4 ML OPHTHALMIC SOLUTION [PF] OU ONE (16:00)
[2018-07-24] MEDS: INSULIN GLARGINE,HUM.REC.ANLOG 100 UNITS/ML SQ SCH (20:13)
[2018-07-24] MEDS: CARBOXYMETHYLCELLULOSE SODIUM 0.4 ML OPHTHALMIC SOLUTION [PF] OU PRN (20:43)
[2018-07-25] VITALS: BP 154/68
[2018-07-25 00:28] LABS: GLUCOSE,POINT OF CARE 176 MG/DL (70-110)
[2018-07-25 00:28] LABS: GLUCOSE,POINT OF CARE 141 MG/DL (70-110)
[2018-07-25] MEDS: PIPERACILLIN SODIUM/TAZOBACTAM 2.25 GM in DEXTROSE 5%-WATER 50 ML IV SCH ×3 (03:09→18:10)
[2018-07-25] MEDS ORDERED: SODIUM CHLORIDE 0.9% 250 ML IV ONE (03:55)
[2018-07-25 04:00] VITALS: BP 152/60
[2018-07-25 04:29] LABS: BASOPHILS % (AUTO) 0.2 % (0.0-2.0); EOSINOPHILS % (AUTO) 0.1 % (1.0-6.0); HEMOGLOBIN 9.8 g/dL (12.0-16.0); LYMPHOCYTES # (AUTO) 0.2 K/uL (1.0-4.8); LYMPHOCYTES % (AUTO) 0.9 % (22.0-44.0); MEAN CORPUSCULAR HEMOGLOBIN 28.2 pg (26.0-34.0); MEAN CORPUSCULAR HGB CONC 31.8 G/dL (31.0-37.0); MEAN CORPUSCULAR VOLUME 89 fL (80-100); MONOCYTES # (AUTO) 1.2 K/uL (0.1-1.0); MONOCYTES % (AUTO) 5.9 % (2.0-9.0); NEUTROPHILS # (AUTO) 18.6 K/uL (1.8-7.7); PLATELET COUNT (AUTO) 182 K/uL (150-450); RED BLOOD CELL COUNT(AUTO) 3.49 MIL/uL (4.00-5.20); RED CELL DISTRIBUTION WIDTH 20.4 % (11.5-14.5)
[2018-07-25 04:34] LABS: CALCIUM, TOTAL 8.6 mg/dL (8.8-10.5); CREATININE 3.37 mg/dL (0.60-1.30); PHOSPHORUS 5.8 mg/dL (2.5-4.9); POTASSIUM 3.8 mmol/L (3.5-5.1)
[2018-07-25 04:45] LABS: NEUTROPHILS % (AUTO) 92.9 % (40.0-70.0)
[2018-07-25 04:48] LABS: GLUCOSE,POINT OF CARE 172 MG/DL (70-110)
[2018-07-25] MEDS: INSULIN LISPRO 100 UNITS/ML SQ PRN ×4 (05:28→23:12)
[2018-07-25 08:00] VITALS: BP 147/69
[2018-07-25] MEDS: DOCUSATE SODIUM 100 MG CAPSULE NG SCH ×2 (09:20→20:59)
[2018-07-25] MEDS: SOD FERRIC GLUC COMPLX/SUCROSE 125 MG in SODIUM CHLORIDE 0.9% 100 ML IV SCH (09:20)
[2018-07-25] MEDS: HEPARIN SODIUM,PORCINE 5,000 UNITS/ML VIAL SQ SCH ×3 (09:21→23:10)
[2018-07-25] MEDS: PANTOPRAZOLE SODIUM 40 MG/VIAL IVP SCH (09:21)
[2018-07-25] MEDS: METOPROLOL TARTRATE 25 MG TABLET PO SCH ×2 (09:21→20:59)
[2018-07-25] MEDS: EPOETIN ALFA 10,000 UNITS/ML VIAL SQ SCH (09:29)
[2018-07-25] MEDS: SEVELAMER CARBONATE 800 MG POWDER PACKET NG SCH (11:31)
[2018-07-25 12:00] VITALS: BP 156/64
[2018-07-25 13:13] LABS: GLUCOSE,POINT OF CARE 98 MG/DL (70-110)
[2018-07-25 16:00] VITALS: BP 137/57
[2018-07-25 19:34] LABS: GLUCOSE,POINT OF CARE 212 MG/DL (70-110)
[2018-07-25 20:00] VITALS: BP 163/67
[2018-07-25] MEDS: INSULIN GLARGINE,HUM.REC.ANLOG 100 UNITS/ML SQ SCH (21:00)
[2018-07-26] VITALS (8 sets, daily range): BP systolic 138–167; BP diastolic 61–77
[2018-07-26] MEDS: PIPERACILLIN SODIUM/TAZOBACTAM 2.25 GM in DEXTROSE 5%-WATER 50 ML IV SCH ×3 (02:35→18:02)
[2018-07-26 04:56] LABS: CALCIUM, TOTAL 8.7 mg/dL (8.8-10.5); CREATININE 4.38 mg/dL (0.60-1.30); PHOSPHORUS 5.8 mg/dL (2.5-4.9); POTASSIUM 3.8 mmol/L (3.5-5.1)
[2018-07-26] MEDS: INSULIN LISPRO 100 UNITS/ML SQ PRN ×4 (05:24→23:34)
[2018-07-26] MEDS ORDERED: SODIUM CHLORIDE 0.9% 250 ML IV ONE (05:25)
[2018-07-26] MEDS: HEPARIN SODIUM,PORCINE 5,000 UNITS/ML VIAL SQ SCH ×3 (07:48→23:31)
[2018-07-26] MEDS: PANTOPRAZOLE SODIUM 40 MG/VIAL IVP SCH (07:49)
[2018-07-26] MEDS: SEVELAMER CARBONATE 800 MG POWDER PACKET NG SCH (07:49)
[2018-07-26] MEDS: DOCUSATE SODIUM 100 MG CAPSULE NG SCH ×2 (07:49→20:25)
[2018-07-26] MEDS: SOD FERRIC GLUC COMPLX/SUCROSE 125 MG in SODIUM CHLORIDE 0.9% 100 ML IV SCH (07:49)
[2018-07-26 08:13] LABS: GLUCOSE,POINT OF CARE 202 MG/DL (70-110)
[2018-07-26 08:13] LABS: GLUCOSE,POINT OF CARE 251 MG/DL (70-110)
[2018-07-26 08:13] LABS: GLUCOSE,POINT OF CARE 240 MG/DL (70-110)
[2018-07-26 08:13] LABS: GLUCOSE,POINT OF CARE 235 MG/DL (70-110)
[2018-07-26] MEDS: METOPROLOL TARTRATE 25 MG TABLET PO SCH ×2 (09:00→20:25)
[2018-07-26 11:43] LABS: ABG A-A DIFF O2 120.4 mmHg (10-20.0); ABG BASE EXCESS 0.9 mmol/L (-2.0-3.0); ABG CARBOXYHEMOGLOBIN 1.4 % (0.0-1.5); ABG HCO3 25.3 mmol/L (22.0-26.0); ABG METHEMOGLOBIN 0.3 % (0.0-1.5); ABG OXYGEN CONTENT 13.8 mL/dL (15.0-23.0); ABG OXYGEN SATURATION 96.1 % (95.0-98.0); ABG OXYHEMOGLOBIN 94.5 % (94.0-100.0); ABG PCO2 39 mmHg (35-45); ABG PH 7.433 (7.35-7.450); ABG TOTAL HEMOGLOBIN 10.3 G/dL (12.0-18.0); O2 DEVICE,BLOOD GAS VENTILATOR (ROOM AIR); PO2, ARTERIAL BG 84.5 mmHg (79.0-87.0); SITE, BLOOD GAS LFT RADIAL; SOURCE, BLOOD GAS ARTERIAL; TEMPERATURE, FAHRENHEIT, BG 98.4 FAHREN (96.0-98.6); VENT MODE, BG Press. Control Vent (ROOM AIR)
[2018-07-26 11:44] LABS: PEEP,BG 5 cm H2O; SPONTANEOUS VT, BG 380 ml
[2018-07-26] MEDS: MORPHINE SULFATE 4 MG/ML SYRINGE IVP PRN (15:10)
[2018-07-26] MEDS ORDERED: HydrALAZINE HCL 20 MG/ML VIAL IVP PRN (16:45)
[2018-07-26] MEDS ORDERED: ACETAMINOPHEN 325 MG TABLET PO PRN (21:15)
[2018-07-26] MEDS: INSULIN GLARGINE,HUM.REC.ANLOG 100 UNITS/ML SQ SCH (21:19)
[2018-07-27] VITALS: BP 150/56
[2018-07-27 00:42] LABS: GLUCOSE,POINT OF CARE 236 MG/DL (70-110)
[2018-07-27 00:42] LABS: GLUCOSE,POINT OF CARE 233 MG/DL (70-110)
[2018-07-27 00:52] LABS: GLUCOSE,POINT OF CARE 215 MG/DL (70-110)
[2018-07-27 00:52] LABS: GLUCOSE,POINT OF CARE 210 MG/DL (70-110)
[2018-07-27] MEDS: PIPERACILLIN SODIUM/TAZOBACTAM 2.25 GM in DEXTROSE 5%-WATER 50 ML IV SCH ×3 (03:26→18:34)
[2018-07-27] MEDS: CARBOXYMETHYLCELLULOSE SODIUM 0.4 ML OPHTHALMIC SOLUTION [PF] OU PRN (03:29)
[2018-07-27 04:00] VITALS: BP 130/52
[2018-07-27 05:00] LABS: BASOPHILS % (AUTO) 0.2 % (0.0-2.0); EOSINOPHILS % (AUTO) 1.7 % (1.0-6.0); HEMATOCRIT 28.1 % (36-46); LYMPHOCYTES # (AUTO) 0.3 K/uL (1.0-4.8); LYMPHOCYTES % (AUTO) 2.2 % (22.0-44.0); MEAN CORPUSCULAR HEMOGLOBIN 28.4 pg (26.0-34.0); MEAN CORPUSCULAR HGB CONC 32.1 G/dL (31.0-37.0); MEAN CORPUSCULAR VOLUME 89 fL (80-100); MONOCYTES # (AUTO) 1.3 K/uL (0.1-1.0); MONOCYTES % (AUTO) 9.5 % (2.0-9.0); NEUTROPHILS # (AUTO) 11.7 K/uL (1.8-7.7); NEUTROPHILS % (AUTO) 86.4 % (40.0-70.0); PLATELET COUNT (AUTO) 197 K/uL (150-450); RED BLOOD CELL COUNT(AUTO) 3.17 MIL/uL (4.00-5.20); RED CELL DISTRIBUTION WIDTH 20.5 % (11.5-14.5)
[2018-07-27 05:14] LABS: CALCIUM, TOTAL 8.6 mg/dL (8.8-10.5); CREATININE 3.72 mg/dL (0.60-1.30); MAGNESIUM 2.3 mg/dL (1.80-2.40); PHOSPHORUS 3.1 mg/dL (2.5-4.9); POTASSIUM 3.5 mmol/L (3.5-5.1)
[2018-07-27] MEDS: INSULIN LISPRO 100 UNITS/ML SQ PRN (06:17)
[2018-07-27 08:00] VITALS: BP 114/83
[2018-07-27] MEDS: PANTOPRAZOLE SODIUM 40 MG/VIAL IVP SCH (08:39)
[2018-07-27] MEDS: HEPARIN SODIUM,PORCINE 5,000 UNITS/ML VIAL SQ SCH ×3 (08:40→23:40)
[2018-07-27] MEDS: DOCUSATE SODIUM 100 MG CAPSULE NG SCH ×2 (08:40→21:00)
[2018-07-27] MEDS: SEVELAMER CARBONATE 800 MG POWDER PACKET NG SCH (08:41)
[2018-07-27] MEDS: METOPROLOL TARTRATE 25 MG TABLET PO SCH ×2 (08:41→21:00)
[2018-07-27] MEDS: EPOETIN ALFA 10,000 UNITS/ML VIAL SQ SCH (08:41)
[2018-07-27] MEDS: SOD FERRIC GLUC COMPLX/SUCROSE 125 MG in SODIUM CHLORIDE 0.9% 100 ML IV SCH (08:42)
[2018-07-27] MEDS ORDERED: SODIUM CHLORIDE 0.9% 250 ML IV ONE ×2 (11:39→12:19)
[2018-07-27 12:00] VITALS: BP 114/55
[2018-07-27] MEDS ORDERED: DEXTROSE 50%-WATER 25 GM/50 ML SYRINGE IVP PRN (12:30)
[2018-07-27 13:23] LABS: GLUCOSE,POINT OF CARE 192 MG/DL (70-110)
[2018-07-27 13:58] LABS: GLUCOSE,POINT OF CARE 216 MG/DL (70-110)
[2018-07-27 16:00] VITALS: BP 122/59
[2018-07-27] MEDS: INSULIN REGULAR, HUMAN 100 UNITS/ML SQ PRN ×2 (16:46→23:41)
[2018-07-27 18:12] LABS: GLUCOSE,POINT OF CARE 208 MG/DL (70-110)
[2018-07-27 20:00] VITALS: BP 104/47
[2018-07-27] MEDS: INSULIN GLARGINE,HUM.REC.ANLOG 100 UNITS/ML SQ SCH (21:01)
[2018-07-28] VITALS: BP 134/68
[2018-07-28] MEDS: PIPERACILLIN SODIUM/TAZOBACTAM 2.25 GM in DEXTROSE 5%-WATER 50 ML IV SCH ×3 (02:59→18:35)
[2018-07-28 04:00] VITALS: BP 124/56
[2018-07-28 05:13] LABS: CALCIUM, TOTAL 8.7 mg/dL (8.8-10.5); CREATININE 4.92 mg/dL (0.60-1.30); POTASSIUM 3.7 mmol/L (3.5-5.1)
[2018-07-28] MEDS: INSULIN REGULAR, HUMAN 100 UNITS/ML SQ PRN ×4 (05:26→23:41)
[2018-07-28 06:43] LABS: GLUCOSE,POINT OF CARE 181 MG/DL (70-110)
[2018-07-28 06:43] LABS: GLUCOSE,POINT OF CARE 193 MG/DL (70-110)
[2018-07-28 06:43] LABS: GLUCOSE,POINT OF CARE 206 MG/DL (70-110)
[2018-07-28 08:00] VITALS: BP 115/51
[2018-07-28] MEDS: METOPROLOL TARTRATE 25 MG TABLET PO SCH ×2 (09:00→20:18)
[2018-07-28] MEDS: DOCUSATE SODIUM 100 MG CAPSULE NG SCH ×2 (09:40→20:18)
[2018-07-28] MEDS: SEVELAMER CARBONATE 800 MG POWDER PACKET NG SCH (09:40)
[2018-07-28] MEDS: PANTOPRAZOLE SODIUM 40 MG/VIAL IVP SCH (09:40)
[2018-07-28] MEDS: HEPARIN SODIUM,PORCINE 5,000 UNITS/ML VIAL SQ SCH ×3 (09:40→23:34)
[2018-07-28 12:00] VITALS: BP 104/52
[2018-07-28] MEDS ORDERED: ALBUMIN HUMAN 25%-12.5GM/50ML 50 ML IV PRN (15:00)
[2018-07-28] MEDS: HYPROMELLOSE 0.5% 15 ML OPHTHALMIC SOLUTION OU SCH ×2 (15:48→23:35)
[2018-07-28 16:00] VITALS: BP 100/51
[2018-07-28] MEDS ORDERED: HEPARIN SODIUM,PORCINE 1,000 UNITS/ML VIAL IVP ONE (17:06)
[2018-07-28] MEDS ORDERED: ALBUMIN HUMAN 25%-12.5GM/50ML IV BOTTLE IV ONE (17:06)
[2018-07-28 20:00] VITALS: BP 136/59
[2018-07-28] MEDS: INSULIN GLARGINE,HUM.REC.ANLOG 100 UNITS/ML SQ SCH (20:19)
[2018-07-28] MEDS: CARBOXYMETHYLCELLULOSE SODIUM 0.4 ML OPHTHALMIC SOLUTION [PF] OU PRN (22:40)
[2018-07-28 23:38] LABS: GLUCOSE,POINT OF CARE 245 MG/DL (70-110)
[2018-07-28 23:38] LABS: GLUCOSE,POINT OF CARE 151 MG/DL (70-110)
[2018-07-28 23:38] LABS: GLUCOSE,POINT OF CARE 186 MG/DL (70-110)
[2018-07-28 23:54] LABS: GLUCOSE,POINT OF CARE 205 MG/DL (70-110)
[2018-07-29] VITALS: BP 138/55
[2018-07-29] MEDS ORDERED: SODIUM CHLORIDE 0.9% 250 ML IV ONE (00:06)
[2018-07-29] MEDS: PIPERACILLIN SODIUM/TAZOBACTAM 2.25 GM in DEXTROSE 5%-WATER 50 ML IV SCH ×3 (02:13→18:50)
[2018-07-29 04:00] VITALS: BP 122/51
[2018-07-29] MEDS: CARBOXYMETHYLCELLULOSE SODIUM 0.4 ML OPHTHALMIC SOLUTION [PF] OU PRN (04:39)
[2018-07-29] MEDS: INSULIN REGULAR, HUMAN 100 UNITS/ML SQ PRN ×3 (04:46→16:44)
[2018-07-29 04:57] LABS: BASOPHILS % (AUTO) 0.3 % (0.0-2.0); EOSINOPHILS % (AUTO) 1.9 % (1.0-6.0); HEMATOCRIT 26.8 % (36-46); HEMOGLOBIN 8.5 g/dL (12.0-16.0); LYMPHOCYTES # (AUTO) 0.5 K/uL (1.0-4.8); LYMPHOCYTES % (AUTO) 3.2 % (22.0-44.0); MEAN CORPUSCULAR HEMOGLOBIN 28.6 pg (26.0-34.0); MEAN CORPUSCULAR HGB CONC 31.8 G/dL (31.0-37.0); MEAN CORPUSCULAR VOLUME 90 fL (80-100); MONOCYTES # (AUTO) 1.1 K/uL (0.1-1.0); MONOCYTES % (AUTO) 7.9 % (2.0-9.0); NEUTROPHILS # (AUTO) 12.3 K/uL (1.8-7.7); PLATELET COUNT (AUTO) 72 K/uL (150-450); RED BLOOD CELL COUNT(AUTO) 2.99 MIL/uL (4.00-5.20); RED CELL DISTRIBUTION WIDTH 19.7 % (11.5-14.5)
[2018-07-29 05:01] LABS: NEUTROPHILS % (AUTO) 86.7 % (40.0-70.0)
[2018-07-29 05:07] LABS: CALCIUM, TOTAL 8.5 mg/dL (8.8-10.5); CREATININE 3.53 mg/dL (0.60-1.30); MAGNESIUM 2.1 mg/dL (1.80-2.40); PHOSPHORUS 3.3 mg/dL (2.5-4.9); POTASSIUM 3.9 mmol/L (3.5-5.1)
[2018-07-29 06:38] LABS: GLUCOSE,POINT OF CARE 270 MG/DL (70-110)
[2018-07-29 08:00] VITALS: BP 144/97
[2018-07-29] MEDS: HYPROMELLOSE 0.5% 15 ML OPHTHALMIC SOLUTION OU SCH ×2 (08:00→16:30)
[2018-07-29] MEDS: METOPROLOL TARTRATE 25 MG TABLET PO SCH ×2 (09:05→20:56)
[2018-07-29] MEDS: HEPARIN SODIUM,PORCINE 5,000 UNITS/ML VIAL SQ SCH ×2 (09:05→16:42)
[2018-07-29] MEDS: PANTOPRAZOLE SODIUM 40 MG/VIAL IVP SCH (09:06)
[2018-07-29] MEDS: SEVELAMER CARBONATE 800 MG POWDER PACKET NG SCH (09:06)
[2018-07-29] MEDS: EPOETIN ALFA 10,000 UNITS/ML VIAL SQ SCH (09:06)
[2018-07-29] MEDS: DOCUSATE SODIUM 100 MG CAPSULE NG SCH ×2 (09:07→20:56)
[2018-07-29 12:00] VITALS: BP 144/97
[2018-07-29 13:59] LABS: GLUCOSE,POINT OF CARE 274 MG/DL (70-110)
[2018-07-29 16:00] VITALS: BP 121/64
[2018-07-29 17:48] LABS: GLUCOSE,POINT OF CARE 256 MG/DL (70-110)
[2018-07-29 20:00] VITALS: BP 143/66
[2018-07-29] MEDS: INSULIN GLARGINE,HUM.REC.ANLOG 100 UNITS/ML SQ SCH (21:04)
[2018-07-29 21:37] LABS: GLUCOSE,POINT OF CARE 267 MG/DL (70-110)
[2018-07-30] VITALS: BP 146/64
[2018-07-30] MEDS: INSULIN REGULAR, HUMAN 100 UNITS/ML SQ PRN ×4 (00:01→18:40)
[2018-07-30] MEDS: HEPARIN SODIUM,PORCINE 5,000 UNITS/ML VIAL SQ SCH ×4 (00:01→23:50)
[2018-07-30] MEDS: HYPROMELLOSE 0.5% 15 ML OPHTHALMIC SOLUTION OU SCH ×4 (00:01→23:50)
[2018-07-30] MEDS: PIPERACILLIN SODIUM/TAZOBACTAM 2.25 GM in DEXTROSE 5%-WATER 50 ML IV SCH ×3 (02:55→18:44)
[2018-07-30 04:00] VITALS: BP 147/60
[2018-07-30 06:13] LABS: GLUCOSE,POINT OF CARE 271 MG/DL (70-110)
[2018-07-30 06:14] LABS: GLUCOSE,POINT OF CARE 245 MG/DL (70-110)
[2018-07-30] MEDS ORDERED: SODIUM CHLORIDE 0.9% 1,000 ML IV ONE (07:31)
[2018-07-30] MEDS: DOCUSATE SODIUM 100 MG CAPSULE NG SCH ×2 (07:34→20:34)
[2018-07-30] MEDS: METOPROLOL TARTRATE 25 MG TABLET PO SCH ×2 (07:34→20:35)
[2018-07-30] MEDS: PANTOPRAZOLE SODIUM 40 MG/VIAL IVP SCH (07:34)
[2018-07-30] MEDS: SEVELAMER CARBONATE 800 MG POWDER PACKET NG SCH (07:34)
[2018-07-30] MEDS: CARBOXYMETHYLCELLULOSE SODIUM 0.4 ML OPHTHALMIC SOLUTION [PF] OU PRN (07:35)
[2018-07-30 08:00] VITALS: BP 139/56
[2018-07-30 08:42] LABS: BASOPHILS % (AUTO) 0.4 % (0.0-2.0); EOSINOPHILS % (AUTO) 1.2 % (1.0-6.0); HEMOGLOBIN 9.2 g/dL (12.0-16.0); LYMPHOCYTES # (AUTO) 0.3 K/uL (1.0-4.8); LYMPHOCYTES % (AUTO) 2.6 % (22.0-44.0); MEAN CORPUSCULAR HEMOGLOBIN 28.3 pg (26.0-34.0); MEAN CORPUSCULAR HGB CONC 31.9 G/dL (31.0-37.0); MEAN CORPUSCULAR VOLUME 89 fL (80-100); MONOCYTES # (AUTO) 0.2 K/uL (0.1-1.0); MONOCYTES % (AUTO) 1.6 % (2.0-9.0); RED BLOOD CELL COUNT(AUTO) 3.27 MIL/uL (4.00-5.20)
[2018-07-30 08:45] LABS: NEUTROPHILS % (AUTO) 94.2 % (40.0-70.0)
[2018-07-30 08:46] LABS: PLATELET COUNT (AUTO) 71 K/uL (150-450)
[2018-07-30 09:15] LABS: CALCIUM, TOTAL 8.6 mg/dL (8.8-10.5); CREATININE 2.31 mg/dL (0.60-1.30); POTASSIUM 3.3 mmol/L (3.5-5.1)
[2018-07-30] MEDS ORDERED: SODIUM CITRATE 4% CATH FLUSH 5 ML SYRINGE IVP ONE ×2 (09:30)
[2018-07-30 12:00] VITALS: BP 114/54
[2018-07-30 14:14] LABS: GLUCOSE,POINT OF CARE 208 MG/DL (70-110)
[2018-07-30 16:00] VITALS: BP 124/58
[2018-07-30 20:00] VITALS: BP 153/64
[2018-07-30 20:41] LABS: GLUCOSE,POINT OF CARE 283 MG/DL (70-110)
[2018-07-30] MEDS: INSULIN GLARGINE,HUM.REC.ANLOG 100 UNITS/ML SQ SCH (21:14)
[2018-07-30 22:38] LABS: GLUCOSE,POINT OF CARE 247 MG/DL (70-110)
[2018-07-31] VITALS: BP 140/62
[2018-07-31] MEDS: INSULIN REGULAR, HUMAN 100 UNITS/ML SQ PRN ×3 (00:26→12:39)
[2018-07-31 00:29] LABS: GLUCOSE,POINT OF CARE 252 MG/DL (70-110)
[2018-07-31] MEDS: PIPERACILLIN SODIUM/TAZOBACTAM 2.25 GM in DEXTROSE 5%-WATER 50 ML IV SCH ×2 (03:07→12:05)
[2018-07-31 04:00] VITALS: BP 149/69
[2018-07-31 04:58] LABS: GLUCOSE,POINT OF CARE 240 MG/DL (70-110)
[2018-07-31 05:28] LABS: BASOPHILS % (AUTO) 0.8 % (0.0-2.0); EOSINOPHILS % (AUTO) 1.2 % (1.0-6.0); HEMATOCRIT 27.8 % (36-46); HEMOGLOBIN 9.1 g/dL (12.0-16.0); LYMPHOCYTES # (AUTO) 0.5 K/uL (1.0-4.8); LYMPHOCYTES % (AUTO) 3.7 % (22.0-44.0); MEAN CORPUSCULAR HEMOGLOBIN 28.5 pg (26.0-34.0); MEAN CORPUSCULAR HGB CONC 32.6 G/dL (31.0-37.0); MEAN CORPUSCULAR VOLUME 88 fL (80-100); MONOCYTES # (AUTO) 1.2 K/uL (0.1-1.0); MONOCYTES % (AUTO) 8.7 % (2.0-9.0); NEUTROPHILS # (AUTO) 12.2 K/uL (1.8-7.7); PLATELET COUNT (AUTO) 78 K/uL (150-450); RED BLOOD CELL COUNT(AUTO) 3.18 MIL/uL (4.00-5.20); RED CELL DISTRIBUTION WIDTH 19.9 % (11.5-14.5)
[2018-07-31 05:34] LABS: POTASSIUM 3.7 mmol/L (3.5-5.1)
[2018-07-31 05:35] LABS: ALBUMIN 2.1 g/dL (3.4-5.0); BILIRUBIN,TOTAL 0.6 mg/dL (0.1-1.0); CALCIUM, TOTAL 8.7 mg/dL (8.8-10.5); CREATININE 4.22 mg/dL (0.60-1.30)
[2018-07-31 05:51] LABS: NEUTROPHILS % (AUTO) 85.6 % (40.0-70.0)
[2018-07-31 08:00] VITALS: BP 138/68
[2018-07-31] MEDS: HEPARIN SODIUM,PORCINE 5,000 UNITS/ML VIAL SQ SCH ×2 (08:00→15:43)
[2018-07-31] MEDS: HYPROMELLOSE 0.5% 15 ML OPHTHALMIC SOLUTION OU SCH ×2 (08:55→15:44)
[2018-07-31] MEDS: DOCUSATE SODIUM 100 MG CAPSULE NG SCH (08:56)
[2018-07-31] MEDS: PANTOPRAZOLE SODIUM 40 MG/VIAL IVP SCH (08:56)
[2018-07-31] MEDS: METOPROLOL TARTRATE 25 MG TABLET PO SCH (08:56)
[2018-07-31] MEDS: SEVELAMER CARBONATE 800 MG POWDER PACKET NG SCH (08:56)
[2018-07-31 12:00] VITALS: BP 128/64
[2018-07-31] MEDS ORDERED: MORPHINE SULFATE 100 MG/NS/PF 100 ML IV PRN (15:08)
[2018-07-31] MEDS ORDERED: ONDANSETRON HCL 4 MG/2 ML VIAL IVP PRN (15:15)
[2018-07-31] MEDS ORDERED: DiphenhydrAMINE HCL 50 MG/ML VIAL IVP PRN (15:15)
[2018-07-31 16:00] VITALS: BP 152/71
== END 2018-07-31 18:15 | disposition expired | DRG 870 ==
LOC: EMS 13:29 → ICU 16:26
PROVIDERS: ADMIT Hospitalist; ATTEND Hospitalist
PROC: 04HY32Z Insertion of Monitoring Device into Lower Artery, Percutaneous Approach (ICD-10-PCS; principal; 2018-07-19)
PROC: 5A1955Z Respiratory Ventilation, Greater than 96 Consecutive Hours (ICD-10-PCS; 2018-07-19)
PROC: 02HV33Z Insertion of Infusion Device into Superior Vena Cava, Percutaneous Approach (ICD-10-PCS; 2018-07-19)
PROC: 0BH17EZ Insertion of Endotracheal Airway into Trachea, Via Natural or Artificial Opening (ICD-10-PCS; 2018-07-19)
PROC: 5A12012 Performance of Cardiac Output, Single, Manual (ICD-10-PCS; 2018-07-19)
PROC: 06HM33Z Insertion of Infusion Device into Right Femoral Vein, Percutaneous Approach (ICD-10-PCS; 2018-07-19)
PROC: 30233N1 Transfusion of Nonautologous Red Blood Cells into Peripheral Vein, Percutaneous Approach (ICD-10-PCS; 2018-07-20)
PROC: 5A1D70Z Performance of Urinary Filtration, Intermittent, Less than 6 Hours Per Day (ICD-10-PCS; 2018-07-20)
PROC: 5A1D70Z Performance of Urinary Filtration, Intermittent, Less than 6 Hours Per Day (ICD-10-PCS; 2018-07-22)
PROC: 5A1D70Z Performance of Urinary Filtration, Intermittent, Less than 6 Hours Per Day (ICD-10-PCS; 2018-07-24)
PROC: 5A1D70Z Performance of Urinary Filtration, Intermittent, Less than 6 Hours Per Day (ICD-10-PCS; 2018-07-26)
PROC: 5A1D70Z Performance of Urinary Filtration, Intermittent, Less than 6 Hours Per Day (ICD-10-PCS; 2018-07-28)
DX: A41.9 Sepsis, unspecified organism (principal); J96.00 Acute respiratory failure, unspecified whether with hypoxia or hypercapnia; N17.0 Acute kidney failure with tubular necrosis; E43 Unspecified severe protein-calorie malnutrition; J18.9 Pneumonia, unspecified organism; E87.2 Acidosis; R57.9 Shock, unspecified; D62 Acute posthemorrhagic anemia; E87.1 Hypo-osmolality and hyponatremia; G93.1 Anoxic brain damage, not elsewhere classified; I46.9 Cardiac arrest, cause unspecified; I12.9 Hypertensive chronic kidney disease with stage 1 through stage 4 chronic kidney disease, or unspecified chronic kidney disease; E87.5 Hyperkalemia; E11.22 Type 2 diabetes mellitus with diabetic chronic kidney disease; E66.9 Obesity, unspecified; E03.9 Hypothyroidism, unspecified; D69.6 Thrombocytopenia, unspecified; E78.5 Hyperlipidemia, unspecified; E83.39 Other disorders of phosphorus metabolism; E83.52 Hypercalcemia; E87.6 Hypokalemia; E87.70 Fluid overload, unspecified; I25.10 Atherosclerotic heart disease of native coronary artery without angina pectoris; Z66 Do not resuscitate; I08.0 Rheumatic disorders of both mitral and aortic valves; Z51.5 Encounter for palliative care; J45.909 Unspecified asthma, uncomplicated; N18.9 Chronic kidney disease, unspecified; Z79.4 Long term (current) use of insulin; Z79.899 Other long term (current) drug therapy
CPT/HCPCS: 36430; 70450; 71250; 72192; 74150; 82805; 83540; 83550; 83605; 83735; 83970; 84100; 84443; 86850; 86900; 86901; 86920; 87040; 87070; 87081; 87086; 87205; 87340; 90935; 92950; 93005; 93306; 94002; 94003; 99291; C9113; G0378; J0171; J0360; J0461; J0885; J1265; J1644; J1815; J2270; J2543; J2704; J2916; J3490; J7030; J7040; J7050; J7060; J7120; P9016; P9047